=== PATIENT | male | born 1970 | race African-American/Black ===

== ENCOUNTER 2017-02-08 20:59 | Emergency (ER) | payer SELFPAY ==
[2017-02-08 21:00] VITALS: BP 138/92; PULSE 96; RESP 16; TEMP 98.2; O2SAT 97
--- NOTE | 2017-02-08 21:46 | PD ---
HPI Chief Complaint: Musculoskeletal Complaint Time Seen by Provider: 21:36 Travel History International Travel<30 days: No Contact w/Intl Traveler<30days: No Traveled to known affect area: No History of Present Illness HPI This patient reports that yesterday morning he had some cramping in his quadriceps. He says his legs hurt so much that he did not go to work. His boss told him to go to the doctor and get evaluated before he could come back to work. At this time he feels fine. No injury. Symptoms severity is mild PFSH Social History Alcohol Use: Yes Tobacco Use: Yes Allergies-Medications (Allergen,Severity, Reaction): Coded Allergies: No Known Allergies (Unverified , 06/04/15) Reported Meds & Prescriptions Reported Meds & Active Scripts Active No Active Prescriptions or Reported Medications Review of Systems General / Constitutional: No: Fever HENT: No: Headaches Cardiovascular: No: Chest Pain or Discomfort Respiratory: No: Cough Physical Exam Narrative GASTROINTESTINAL: Abdomen soft, non-tender, nondistended. Positive bowel sounds. No hepato-splenomegaly, or palpable masses. No guarding. SKIN: Focused skin assessment reveals no rash or ulcers. Skin is warm and dry. Palpation shows no induration or nodules. Legs: Good range of motion without objective finding. No tenderness Data Data Last Documented VS Vital Signs Date Time Temp Pulse Resp B/P (MAP) Pulse Ox O2 Delivery O2 Flow Rate FiO2 02/08/17 21:00 98.2 96 16 138/92 (107) 97 Room Air MDM Medical Decision Making Medical Screen Exam Complete: Yes Emergency Medical Condition: Yes Medical Record Reviewed: Yes Differential Diagnosis Myalgia, soft tissue injury, contusion Narrative Course I have reviewed the patient's electronic medical record. Patient's symptoms have resolved and no objective evidence of abnormality on exam He is cleared to return to work Diagnosis Primary Impression: Myalgia Additional Instructions: The patient was advised to follow up with their physician and return if they worsen. Med/Other Pt SpecificInfo: Other Scripts No Active Prescriptions or Reported Meds Disposition: 01 DISCHARGE HOME Condition: Stable John Callejas MD Feb 08, 2017 21:46
== END 2017-02-08 21:59 | disposition home or self-care (01) ==
LOC: NEPD 20:59
DX: M79.1 Myalgia (principal); Z72.0 Tobacco use
CPT/HCPCS: 99281

== ENCOUNTER 2017-02-27 02:19 | Emergency (ER) | payer SELFPAY ==
[2017-02-27] MEDS ORDERED: SODIUM BICARBONATE 8.4% INJ 50 MEQ/50 ML SYR IV ONE (02:20)
[2017-02-27] MEDS ORDERED: CALCIUM CHLORIDE 10% SOLN 1 GRAM/10 ML SYR IV ONE (02:20)
[2017-02-27] MEDS ORDERED: EPINEPHrine HCL (1:10,000) 1 MG/10 ML SYRINGE IV ONE ×2 (02:20)
--- NOTE | 2017-02-27 02:39 | PD ---
HPI Chief Complaint: cardiopulmonary arrest Time Seen by Provider: 02:27 Travel History International Travel<30 days: No Contact w/Intl Traveler<30days: No Traveled to known affect area: No History of Present Illness HPI 46-year-old male was found unresponsive in one of the patient's room at [facility]. Unknown amount time patient was unresponsive. ACLS protocol started. Chest compressions started. Patient was intubated. IV established. Patient was given epinephrine. Patient was transferred to the emergency room for further evaluation. Unable to obtain any information including past surgical history, medications, allergy. [facility] Social History Alcohol Use: Yes Tobacco Use: Yes Allergies-Medications (Allergen,Severity, Reaction): Coded Allergies: No Known Allergies (Unverified , 06/04/15) Reported Meds & Prescriptions Reported Meds & Active Scripts Active No Active Prescriptions or Reported Medications Review of Systems ROS Limitations: Intubated, Unresponsive Physical Exam Narrative GENERAL: Well-nourished, well-developed patient. SKIN: Focused skin assessment warm/dry. HEAD: Normocephalic. EYES: No scleral icterus. No injection or drainage. Pupils 4 mm dilated, nonreactive. NECK: Supple, trachea midline. No JVD or lymphadenopathy. CARDIOVASCULAR: No cardiac activity RESPIRATORY: No spontaneous respiration. Breath sounds equal bilaterally with bagging. Patient intubated. GASTROINTESTINAL: Abdomen soft, nondistended. MUSCULOSKELETAL: No cyanosis, or edema. BACK: No obvious injury Neurologic exam: Patient's unresponsive. MDM Medical Decision Making Medical Screen Exam Complete: Yes Emergency Medical Condition: Yes Differential Diagnosis Differential diagnosis including cardiopulmonary arrest, asystole. Narrative Course 46-year-old male was found unresponsive and asystole. ACLS protocol started prior to arrival to the emergency room. Patient arrival to the emergency room in asystole. ACLS protocol continued in emergency room. Chest compression continued. Ventilation through ET tube. Epinephrine IV given in multiple doses. Patient did not respond. Patient was pronounced. Diagnosis Primary Impression: Cardiopulmonary arrest Additional Instructions: Patient is an M.E case. Scripts No Active Prescriptions or Reported Meds Disposition: 20 Condition: Reagan Arredondo MD Feb 27, 2017 02:39
== END 2017-02-27 04:50 | disposition expired ==
LOC: NEPE 02:19
DX: I46.9 Cardiac arrest, cause unspecified (principal); Z72.0 Tobacco use
CPT/HCPCS: 31500; 99281; J0171